=== PATIENT | female | born 1970 | race Caucasian/White ===

== ENCOUNTER 2019-07-23 13:33 | Emergency (ER) | payer OTHER, MEDICAID ==
--- NOTE | 2019-07-23 14:07 | ED Physician Documentation ---
<AsuncionTom M - Last Filed: 07/23/19 22:18> PD HPI MHE - Stated complaint Stated Complaint: MHE - Chief complaint Chief Complaint: MHE - History obtained from History obtained from: Patient - History of Present Illness Primary symptom: Other (49-year-old woman with history of bipolar disorder. Last hospitalization was maybe 15 years ago in [place]. In April her psychiatric nurse practitioner switched her from Seroquel which she had been on long-term over to Latuda. That did not work at all for her and then she went back to Seroquel at an increasing dose. She started to become confused and was not sleeping at all. Her psychiatric nurse practitioner switched her over to trazodone at 100 mg nightly which also was ineffective. She is not hallucinating but the father who is with her says she is talking nonsense probably because of poor sleep.) Review of Systems Ten Systems: 10 systems reviewed and negative Constitutional: reports: Reviewed and negative Ears: reports: Reviewed and negative Nose: reports: Reviewed and negative PD PAST MEDICAL HISTORY - Present Medications Home Medications: Ambulatory Orders Medication Instructions Recorded Confirmed Trazodone HCl 100 mg PO DAILY PM 07/23/19 07/23/19 - Allergies Allergies/Adverse Reactions: Allergies Allergy/AdvReac Type Severity Reaction Status Date / Time No Known Drug Allergies Allergy Verified 07/23/19 13:38 PD ED PE NORMAL - Vitals Vital signs reviewed: Yes - General General: Alert and oriented X 3, Other (She is slow to answer questions, mildly confused but technically alert and oriented) - HEENT HEENT: PERRL, EOMI - Neck Neck: Supple, no meningeal sign, No bony TTP - Cardiac Cardiac: RRR, No murmur - Respiratory Respiratory: No respiratory distress, Clear bilaterally - Abdomen Abdomen: Normal bowel sounds, Soft, Non tender - Back Back: No CVA TTP, No spinal TTP - Derm Derm: Normal color, Warm and dry - Extremities Extremities: No deformity, No tenderness to palpate, Normal ROM s pain, No edema, No calf tenderness / cord - Neuro Neuro: Alert and oriented X 3, No motor deficit, No sensory deficit, Normal speech PD MEDICAL DECISION MAKING - ED course ED course: This is a 49-year-old woman who presents with decompensated bipolar disorder, she seems fairly ill and the initial plan was to pursue inpatient hospitalization. Seen extensively by social work, mostly facilities contacted felt that she was too acute and not a good gopal voluntary and as such the DCR was dispatched. DCR refused to see her feeling that she was a good candidate for outpatient treatment. Of course this is in contrast to my own feelings and the feelings of the facilities that refused to take her as a good gopal voluntary because she was too acute. She will board in the emergency department pending repeat social work evaluation in the morning. She did seem more coherent but still fairly psychotic after IM Zyprexa. Departure - Departure Disposition: 01 Home, Self Care Clinical Impression: Psychosis Qualifiers: Psychosis type: unspecified psychosis type Qualified Code(s): F29 - Unspecified psychosis not due to a substance or known physiological condition Bipolar affective disorder Qualifiers: Active/Remission status: currently active Current bipolar episode type: manic Current episode severity: severe Psychotic features: with psychotic features Qualified Code(s): F31.2 - Bipolar disorder, current episode manic severe with psychotic features Instructions: ED Manic Depression, ED Insomnia, Overview of Sleep Problems Follow-Up: Your, doctor [Other] Comments: Today it appears the psychosis that is present is related to sleep deprivation. You were given an injection of olanzapine or Zyprexa and this should help with sleep today. Take 200 mg of the trazodone tonight and follow-up with your prescriber tomorrow for further medication adjustments. <Farhad Bueno - Last Filed: 07/24/19 10:44> Results - Vitals Vitals: Vital Signs - 24 hr 07/23/19 07/24/19 13:38 07:19 Temperature 36.2 C L 36.4 C L Heart Rate 94 104 H Respiratory 18 16 Rate Blood Pressure 136/83 H 137/84 H O2 Saturation 98 95 Oxygen O2 Source Room air - Labs Labs: Laboratory Tests 07/23/19 07/23/19 07/23/19 14:08 14:08 14:40 WBC 9.8 RBC 4.83 Hgb 14.9 Hct 43.0 MCV 89.0 MCH 30.8 MCHC 34.7 RDW 12.5 Plt Count 280 MPV 9.7 Neut # (Auto) 6.9 H Lymph # (Auto) 2.1 [place] # (Auto) 0.8 Eos # (Auto) 0.0 Baso # (Auto) 0.0 Absolute Nucleated RBC 0.00 Nucleated RBC % 0.0 Sodium Potassium Chloride Carbon Dioxide Anion Gap BUN Creatinine Estimated GFR (MDRD) Glucose Calcium Total Bilirubin AST ALT Alkaline Phosphatase Total Protein Albumin Globulin Albumin/Globulin Ratio Lipase TSH Urine Color YELLOW Urine Clarity CLEAR Urine pH 6.0 Ur Specific [place] <=1.005 Urine Protein NEGATIVE Urine Glucose (UA) NEGATIVE Urine Ketones NEGATIVE Urine Occult Blood TRACE-INTA Urine Nitrite NEGATIVE Urine Bilirubin NEGATIVE Urine Urobilinogen 0.2 (NORMAL) Ur Leukocyte Esterase NEGATIVE Ur Microscopic Review NOT INDICATED Urine Culture Comments NOT INDICATED Urine HCG, Qual NEGATIVE Salicylates Urine Opiates Screen NEGATIVE Ur Oxycodone Screen NEGATIVE Urine Methadone Screen NEGATIVE Ur Propoxyphene Screen NEGATIVE Acetaminophen Ur Barbiturates Screen NEGATIVE Ur Tricyclics Screen NEGATIVE Ur Phencyclidine Scrn NEGATIVE Ur Amphetamine Screen NEGATIVE U Methamphetamines Scrn NEGATIVE U Benzodiazepines Scrn NEGATIVE Urine Cocaine Screen NEGATIVE U Cannabinoids Screen NEGATIVE Ethyl Alcohol 07/23/19 07/23/19 14:40 14:40 WBC RBC Hgb Hct MCV MCH MCHC RDW Plt Count MPV Neut # (Auto) Lymph # (Auto) [place] # (Auto) Eos # (Auto) Baso # (Auto) Absolute Nucleated RBC Nucleated RBC % Sodium 137 Potassium 3.6 Chloride 102 Carbon Dioxide 24 Anion Gap 11.0 BUN 8 Creatinine 0.7 Estimated GFR (MDRD) 88 L Glucose 113 H Calcium 9.4 Total Bilirubin 0.7 AST 19 ALT 30 Alkaline Phosphatase 52 Total Protein 7.2 Albumin 4.5 Globulin 2.7 Albumin/Globulin Ratio 1.7 Lipase 26 TSH 1.61 Urine Color Urine Clarity Urine pH Ur Specific [place] Urine Protein Urine Glucose (UA) Urine Ketones Urine Occult Blood Urine Nitrite Urine Bilirubin Urine Urobilinogen Ur Leukocyte Esterase Ur Microscopic Review Urine Culture Comments Urine HCG, Qual Salicylates < 6.0 Urine Opiates Screen Ur Oxycodone Screen Urine Methadone Screen Ur Propoxyphene Screen Acetaminophen < 10 L Ur Barbiturates Screen Ur Tricyclics Screen Ur Phencyclidine Scrn Ur Amphetamine Screen U Methamphetamines Scrn U Benzodiazepines Scrn Urine Cocaine Screen U Cannabinoids Screen Ethyl Alcohol < 5.0 PD MEDICAL DECISION MAKING - ED course ED course: Patient did have some improvement in her psychosis after receiving IM Zyprexa and she reports poor sleep throughout the night. She gives a history of taking 100 mg of trazodone the past 2 nights which has not been helpful for her sleep. This morning she would like to go back home and we have given her a second injection of Zyprexa and I will encourage her to increase her dose of trazodone to 200 mg nightly and she will follow-up with her prescriber tomorrow
[2019-07-23 14:17] LABS: MUDS CUTOFF CONCENTRATIONS CUTOFF CONC BELOW:
[2019-07-23 14:21] LABS: BILIRUBIN,URINE NEGATIVE (NEGATIVE); GLUCOSE, URINE (UA) NEGATIVE (NEGATIVE); KETONES,URINE (UA) NEGATIVE (NEGATIVE); LEUKOCYTE ESTERASE, URINE NEGATIVE (NEGATIVE); NITRITE,URINE NEGATIVE (NEGATIVE); OCCULT BLOOD,URINE TRACE-INTA (NEGATIVE); PROTEIN,URINE NEGATIVE (NEGATIVE); UROBILINOGEN,URINE 0.2 (NORMAL) E.U./dL (NORMAL)
[2019-07-23 14:23] LABS: CLARITY,URINE CLEAR (CLEAR); HCG UR QUAL NEGATIVE
[2019-07-23 14:28] LABS: COCAINE SCREEN URINE NEGATIVE (NEGATIVE); METHAMPHETAMINES SCREEN, URINE NEGATIVE (NEGATIVE); OPIATE SCREEN, URINE NEGATIVE (NEGATIVE)
[2019-07-23 14:29] LABS: AMPHETAMINE SCREEN,URINE NEGATIVE (NEGATIVE); BENZODIAZEPINES SCREEN, URINE NEGATIVE (NEGATIVE); METHADONE SCREEN, URINE NEGATIVE (NEGATIVE); OXYCODONE SCREEN, URINE NEGATIVE (NEGATIVE); PROPOXYPHENE SCREEN, URINE NEGATIVE (NEGATIVE); TRICYCLIC ANTIDEPRESSANT,URINE NEGATIVE (NEGATIVE)
[2019-07-23 14:46] LABS: BASOPHILS % (AUTO) 0.4 %; EOSINOPHILS % (AUTO) 0.1 %; HGB - HEMOGLOBIN 14.9 g/dL (12.0-16.0); LYMPHOCYTES # (AUTO) 2.1 10^3/uL (1.5-3.5); LYMPHOCYTES % (AUTO) 20.9 %; MEAN CORPUSCULAR HEMOGLOBIN 30.8 pg (27.0-31.0); MEAN CORPUSCULAR HGB CONC 34.7 g/dL (32.0-36.0); MEAN PLATELET VOLUME 9.7 fL (7.9-10.8); MONOCYTES # (AUTO) 0.8 10^3/uL (0.0-1.0); MONOCYTES % (AUTO) 7.9 %; NEUTROPHILS # (AUTO) 6.9 10^3/uL (1.5-6.6); NEUTROPHILS % (AUTO) 70.2 %; PLT - PLATELET COUNT 280 10^3/uL (130-450); RED BLOOD COUNT 4.83 10^6/uL (4.20-5.40); RED CELL DISTRIBUTION WIDTH 12.5 % (12.0-15.0); WHITE BLOOD COUNT 9.8 x10^3/uL (4.8-10.8)
[2019-07-23 15:02] LABS: ACETAMINOPHEN < 10 ug/mL (10-30); ALBUMIN 4.5 g/dL (3.2-5.5); ALBUMIN/GLOBULIN RATIO 1.7 (1.0-2.2); ALKALINE PHOSPHATASE 52 IU/L (42-121); ALT ALANINE AMINOTRANSFERASE 30 IU/L (10-60); AST ASPARTATE AMINOTRANSFERASE 19 IU/L (10-42); BILIRUBIN,TOTAL 0.7 mg/dL (0.2-1.0); BUN - BLOOD UREA NITROGEN 8 mg/dL (6-20); CALCIUM 9.4 mg/dL (8.5-10.3); CARBON DIOXIDE - CO2 24 mmol/L (21-32); CHLORIDE 102 mmol/L (101-111); CREATININE 0.7 mg/dL (0.4-1.0); GFR - MDRD 88 (>89); GLUCOSE 113 mg/dL (70-100); LIPASE 26 U/L (22-51); SALICYLATE < 6.0 mg/dL; SODIUM 137 mmol/L (135-145); TOTAL PROTEIN 7.2 g/dL (6.7-8.2)
[2019-07-23] MEDS ORDERED: LORazepam 1 MG TABLET PO STA (18:19)
[2019-07-23] MEDS: OLANZapine ODT 5 MG TABLET TL ONE ×2 (18:49→19:37)
[2019-07-23] MEDS: OLANZapine ODT 5 MG TABLET TL STA ×2 (19:37→20:15)
[2019-07-23] MEDS ORDERED: OLANZapine 10 MG VIAL IM STA (19:56)
[2019-07-23] MEDS ORDERED: diazePAM 5 MG TABLET PO STA (21:59)
[2019-07-24] MEDS ORDERED: NAPROXEN 250 MG TABLET PO STA (00:59)
[2019-07-24] MEDS ORDERED: OLANZapine 10 MG VIAL IM STA (09:52)
[2019-07-24 10:45] VITALS: BP 133/74
== END 2019-07-24 10:45 | disposition home or self-care (01) ==
LOC: ED 13:33
DX: F29 Unspecified psychosis not due to a substance or known physiological condition (principal); F31.2 Bipolar disorder, current episode manic severe with psychotic features; G47.00 Insomnia, unspecified
CPT/HCPCS: 36415; 80320; 80329; 81003; 81025; 83690; 99283; A9270; 80053; 80306; 80307; 81001; 84443; 85025; 87086

== ENCOUNTER 2024-01-07 11:27 | Emergency (ER) | payer MEDICAID, OTHER ==
[2024-01-07 12:09] VITALS: BP 110/67; O2SAT 98
[2024-01-07 12:19] LABS: RAPID STREP SCREEN Negative (Negative)
--- NOTE | 2024-01-07 12:34 | ED Physician Documentation ---
PD HPI URI - Stated complaint Stated Complaint: SORE THROAT,PX,SWELLING - Chief complaint Chief Complaint: Heent - History obtained from History obtained from: Patient - History of Present Illness Timing - onset: How many days ago (2) Timing duration: Days Timing details: Gradual onset, Still present Associated symptoms: Sore throat, Dry cough. No: Fever Contributing factors: No: Sick contact Similar symptoms before: Has not had sx before PD PAST MEDICAL HISTORY - Past Medical History Past Medical History: Yes HEENT: Glaucoma Psych: Bipolar disorder - Past Surgical History Past Surgical History: No - Present Medications Home Medications: Ambulatory Orders Medication Instructions Recorded Confirmed Trazodone HCl 100 mg PO DAILY PM 07/23/19 07/23/19 - Allergies Allergies/Adverse Reactions: Allergies Allergy/AdvReac Type Severity Reaction Status Date / Time No Known Drug Allergies Allergy Verified 01/07/24 12:50 - Social History Does the pt smoke?: No Smoking Status: Never smoker Does the pt drink ETOH?: No Does the pt have substance abuse?: No - Immunizations Immunizations: TDAP >10years/unknown - POLST Patient has POLST: No PD ED PE NORMAL - Vitals Vital signs reviewed: Yes - General General: Alert and oriented X 3, No acute distress, Well developed/nourished - HEENT HEENT: No: Pharynx benign (redness but no tonsillar swelling nor surrounding swelling nor exudate. ) - Neck Neck: Supple, no meningeal sign, Other (mild anterior adenopathy. ) - Cardiac Cardiac: RRR, No murmur - Respiratory Respiratory: Clear bilaterally - Derm Derm: Normal color, Warm and dry, No rash Results - Vitals Vitals: Oxygen O2 Source Room air - Labs Labs: Microbiology 01/07/24 12:06 Group A Strep Throat Culture - Preliminary Throat Laboratory Tests 01/07/24 01/07/24 12:06 12:31 Nasal Adenovirus (PCR) NOT DETECTED Nasal B. parapertussis DNA (PCR) NOT DETECTED Nasal Coronavir 229E PCR NOT DETECTED Nasal Coronavir HKU1 PCR NOT DETECTED Nasal Coronavir NL63 PCR NOT DETECTED Nasal Coronavir OC43 PCR NOT DETECTED Nasal Enterovir/Rhinovir PCR NOT DETECTED Nasal Influenza B PCR NOT DETECTED Nasal Influenza A PCR NOT DETECTED Nasal Parainfluen 1 PCR NOT DETECTED Nasal Parainfluen 2 PCR NOT DETECTED Nasal Parainfluen 3 PCR NOT DETECTED Nasal Parainfluen 4 PCR NOT DETECTED Nasal RSV (PCR) NOT DETECTED Nasal B.pertussis DNA PCR NOT DETECTED Nasal C.pneumoniae (PCR) NOT DETECTED Jac Human Metapneumo PCR NOT DETECTED Nasal M.pneumoniae (PCR) NOT DETECTED Nasal SARS-CoV-2 (PCR) NOT DETECTED Group A Strep Rapid Negative PD Medical Decision Making - ED course Complexity details: reviewed results (rapid strep test negative. Offered viral PCR and she would like that but will not make her wait for esult. To look it up on patient portal. ), considered differential (no fevers. Has sore throat and congestion. COuld be viral illness or allergies. She is concerned about strep in particular. ), d/w patient Departure - Departure Disposition: 01 Home, Self Care Clinical Impression: Upper respiratory infection Condition: Stable Record reviewed to determine appropriate education?: Yes Comments: Your rapid strep test is negative. We will do a culture on the swab that will result in a couple of days to look for other bacterial type infections that are missed. Will call you if there is any signs of bacterial infection. Otherwise your symptoms sound more likely to be a viral illness. We did a viral PCR test which will result in another 1-2 hours. You can also look it up online on the patient portal. Tylenol or ibuprofen as needed. Drink lots of fluids. Symptomatic treatment mainly. Forms: PCP List Discharge Date/Time: 01/07/24 12:50
[2024-01-07 13:29] LABS: B. PARAPERTUSSIS- RESP PCR PAN NOT DETECTED; B. PERTUSSIS- RESP PCR PANEL NOT DETECTED; C. PNEUMONIAE- RESP PCR PANEL NOT DETECTED; CORONAVIRUS 229E-RESP PCR NOT DETECTED; CORONAVIRUS HKU1-RESP PCR NOT DETECTED; CORONAVIRUS NL63-RESP PCR NOT DETECTED; CORONAVIRUS OC43-RESP PCR NOT DETECTED; HUMAN METAPNEUMOVIRUS NOT DETECTED; INFLUENZA A- RESP PCR PANEL NOT DETECTED; INFLUENZA B - RESP PCR PANEL NOT DETECTED; M. PNEUMONIAE- RESP PCR PANEL NOT DETECTED; PARAINFLUENZA VIRUS 1 NOT DETECTED; PARAINFLUENZA VIRUS 2 NOT DETECTED; PARAINFLUENZA VIRUS 3 NOT DETECTED; PARAINFLUENZA VIRUS 4 NOT DETECTED; RHINOVIRUS/ENTEROVIRUS NOT DETECTED; RSV- RESP PCR PANEL NOT DETECTED; SARS-CoV-2 -RESP PCR PANEL NOT DETECTED
== END 2024-01-07 12:50 | disposition home or self-care (01) ==
LOC: ED 11:27
DX: J06.9 Acute upper respiratory infection, unspecified (principal)
CPT/HCPCS: 87070; 87430; 87633; 99282; 99283